=== PATIENT | male | born 1955 | race Caucasian/White ===

== ENCOUNTER 2017-01-16 12:05 | Emergency (ER) | payer OTHER ==
[~2017-01-16] VITALS: Ht 180.3 cm; Wt 96.0 kg
[2017-01-16 12:22] VITALS: BP 100/66; PULSE 81; RESP 15; O2SAT 95
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
[2017-01-16 12:40] LABS: BASOPHILS % (AUTO) 0.4 % (0-3); EOSINOPHILS % (AUTO) 3.5 % (0-5); MONOCYTES % (AUTO) 9.8 % (4-12); Mean Corpuscular Hemoglobin 31.3 pg (27.0-35.0); Mean Corpuscular Volume 87.6 fL (81-100); NEUTROPHILS % (AUTO) 57.8 % (40-74); Platelet Count 194 bil/L (150-400)
[2017-01-16 13:38] VITALS: BP 98/68; PULSE 70; RESP 16; O2SAT 96
[2017-01-16 15:53] VITALS: BP 109/68; PULSE 78; RESP 19; O2SAT 99
[2017-01-16 20:09] VITALS: BP 136/90; PULSE 76; RESP 10; O2SAT 97
== END 2017-01-16 20:11 | disposition home or self-care (01) ==
LOC: SED 12:05 → EDBD 12:05 → SED 20:11
DX: T42.4X2A Poisoning by benzodiazepines, intentional self-harm, initial encounter (principal); T43.212A Poisoning by selective serotonin and norepinephrine reuptake inhibitors, intentional self-harm, initial encounter; F10.120 Alcohol abuse with intoxication, uncomplicated; X58.XXXA Exposure to other specified factors, initial encounter; Y93.9 Activity, unspecified; Y92.009 Unspecified place in unspecified non-institutional (private) residence as the place of occurrence of the external cause; Y99.8 Other external cause status; I10 Essential (primary) hypertension
CPT/HCPCS: 36415; 80053; 82075; 85025; 93005; 99284; G0480